=== PATIENT | male | born 1995 | race Caucasian/White ===

== ENCOUNTER 2024-07-23 17:08 | Emergency (ER) | payer BC, SELFPAY ==
[2024-07-23 17:11] VITALS: BP 165/95
--- NOTE | 2024-08-04 22:02 | ED.GENMED ---
History of Present Illness
General
Chief Complaint: Eye Problems
Time Seen by Provider: 07/23/24 19:02
History of Present Illness
History of Present Illness:
This is for ED visit 07/23/2024
TIME OF INITIAL ENCOUNTER:
HPI:
The patient presents due to left eye discomfort. He may have had a corneal abrasion at 1 point. He has intermittently had discomfort for months.
EXAM:
GENERAL: Well appearing in no distress
HEENT: Moist oral mucosa, no foreign body noted, no fluorescein uptake noted to the left eye
NEUROLOGIC: Excellent strength all extremities, no obvious coordination deficits
PSYCHIATRIC: Appropriate mental status, normal insight and judgement
EXTREMITIES: Nontender, no edema, moves all extremities equally
SKIN: No rash, no lesions
NUMBER AND COMPLEXITY OF PROBLEMS ADDRESSED AT THE ENCOUNTER
� Chronic conditions affecting care: Denies any significant past medical history
� Acute Exacerbation and/or Progression of Chronic Illness: This is an acute problem
� Differential Diagnosis includes: Iritis unlikely as patient has no significant pain and exam is not consistent with iritis, retained foreign body
AMOUNT AND/OR COMPLEXITY OF DATA TO BE REVIEWED AND ANALYZED
� I performed an independent evaluation of and my interpretation is:
EKG:
CT:
X-rays:
Laboratory Studies:
Other:
� Review of other/old records: No old records available for review
� Clinical information was obtained by an independent historian: Spoke to family member at bedside
� Prescriptions/Medications Considered but not given:
� Further testing considered but not performed: Imaging/Labs not indicated
RISK OF COMPLICATIONS AND/OR MORBIDITY OR MORTALITY OF PATIENT MANAGEMENT
� Social determinants of health affecting care:
� Discussion with other providers:
� Escalation of care including admission/observation vs risk of discharge considered: I irrigated the eye with saline after using tetracaine. I also used fluorescein and there was no uptake. Recommended that he follows up with
ophthalmology as well. Lives at home
ANY OTHER UPDATES:
Phy Exam
Physical Exam
Physical Exam:
See HPI
Course
Orders/Labs/Results
Orders:
Orders
07/23/24 17:37
Visual Acuity- Treatment ONCE
07/23/24 19:40
Fluorescein Sodium [Ful-Santa] 2 mg .ROUTE .STK-MED ONE
Purified Water Eye Wash [Dacriose Eye Wash Solution] 120 ml .ROUTE .STK-MED ONE
Tetracaine HCl [Tetracaine 0.5% Ophthalmic Solution] 1 drop .ROUTE .STK-MED ONE
Vital Signs
Initial and Last Documented VS:
Initial Vital Signs
Temp Pulse Resp BP Pulse Ox
36.7 C 74 16 165/95 100
07/23/24 17:11 07/23/24 17:11 07/23/24 17:11 07/23/24 17:11 07/23/24 17:11
Last Documented Vital Signs
Temp Pulse Resp BP Pulse Ox
36.7 C 74 16 165/95 100
07/23/24 17:11 07/23/24 17:11 07/23/24 17:11 07/23/24 17:11 07/23/24 17:11
*Critical Care Note
Total Time (30-74mins, 75-104mins- exclusive of procedures): Not Applicable
ED Attending Note
-
Portions of this chart may have been created with voice recognition software.� Occasional wrong word or��sound alike� substitutions may have occurred due to the inherent limitations of voice recognition software.
Discharge Plan
Departure
Patient Disposition: Home (Routine Discharge)
Date of Disposition: 07/23/24
Time of Disposition: 19:21
Patient with high blood pressure during this ER visit?: Yes
Discharge Problem:
Conjunctival irritation
Instructions: BLOOD PRESSURE
Prescriptions:
New
ofloxacin 0.3 % drops
2 drp ophthalmic (eye) QID Qty: 10 0RF
Referrals:
Luis Cartwright MD [Active] - Follow up in 2-3 days
Activity Restrictions/Additional Instructions:
I anesthetized the left eye, saw no uptake on the fluorescein stain to suggest a corneal abrasion, I see no sign of foreign body. I irrigated the eye including underneath the eyelids. I have given the contact information for local dog handler or trainer
and of also ordered antibiotic drops to help prevent/treat any potential infection. I have given you the contact information for local dog handler or trainer, Dr. Cartwright. 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
Interventions
Interventions:
*Risk Screen - Suicide Last Done: 07/23/24 19:42
*General Assessment Last Done: 07/23/24 19:42
*Neglect/Abuse Screening Last Done: 07/23/24 19:42
ED- Fall Risk Assessment Last Done: 07/23/24 19:42
*ED COVID-19 Vaccine History Last Done: 07/23/24 19:42
*Nursing Disposition Last Done: 07/23/24 19:42
Discharge Date and Time
Discharge Date/Time: 07/23/24 19:43
Print Language: [place]
== END 2024-07-23 19:43 | disposition home or self-care (01) ==
LOC: EMR 17:08
PROVIDERS: EMERGENCY PHYSICIAN Emergency Medicine
DX: H57.12 Ocular pain, left eye (principal)
CPT/HCPCS: 99282